=== PATIENT | female | born 1975 | race Asian ===

== ENCOUNTER 2019-10-31 10:34 | Outpatient (CLI) | payer OTHER ==
--- NOTE | 2019-10-31 13:05 | SLEEP CARE CONSULTATION ---
Information from patient questionnaire entered by Leann Leblanc. I have reviewed and concur with the information entered by Leann Leblanc. This document represents the service I personally performed and the decisions made by me, Darya Quan MD, [facility]. History of Present Illness Service Date and Time: 10/31/2019 1034 Reason for Visit: New patient Chief Complaint: reports: Snoring, Fatigue, Frequent awakenings at night Date of Onset: 1+ years Usual bedtime: 2300 Time it takes to fall asleep: 10 minutes Snores at night: Yes Observed to quit breathing while asleep: Yes Sleeps alone due to snoring: No Number of times waking at night: 2-3 Reasons for waking at night: reports: Snoring, Bathroom Toss, Turn, or Twitch while sleeping: Yes Recalls having dreams: Yes Usually gets out of bed at: [id number] Feels refreshed in the morning: No Morning headache: No Sleepy or fatigued during the day: Yes Ever fallen asleep while driving: No Takes day naps: Yes Dreams during day naps: No Prior sleep studies: No Additional HPI information: I had the pleasure of seeing Ms. Cuevas today regarding the possibility of her having a sleep disorder. As you know, she is a 44 year old lady who complains of loud snore, frequent awakenings, and persistent fatigue for over a year. She had a sleep study in 2016 in [place] that was negative but she said she slept very little. The patient tells me that she normally goes to bed around 11 pm, and it takes her approximately 10 minutes to fall asleep. She has been told that she snores loudly and irregularly at night. She has never been observed to stop breathing in her sleep. Her spouse sleeps in the same bed. He wears a CPAP. She can recall waking up on the average of 2 - 3 times during the night. Most of the time she wakes up because of having to use the bathroom. She has awakened occasionally because of her own snoring, choking, and having to gasp for air. There is a lot of tossing and turning in her sleep. No somniloquy (sleep talking) or somnambulism (sleep walking). Generally she can recall having dreams. In the morning she usually gets up out of the bed around 6 - 7 a.m. not feeling refreshed nor rested. She usually does not have a morning headache. During the day she complains of feeling sleepy and fatigued. Her score on [place] Sleepiness Scale is 10 out of 24. She has never fallen asleep while driving nor has had any accident due to sleepiness. She usually takes naps during the day. Upon falling asleep during the day she denies having vivid dreams. She has never had sleep paralysis, experienced cataplexy or symptoms of restless leg syndrome. She denies having impaired concentration during the day. Subjective Initial [place] Sleepiness Scale score: 10 (in 2020) Past Medical History Past Medical History: reports: Arthritis, Insulin resistance, GERD Social History The patient's occupation is a [employer]. Patient is and lives in [place]. Have you smoked in the past 12 months: No Alcohol use: No Caffeine use: No Allergies and Home Medications Drug allergies reviewed: Yes Home medication list reviewed: Yes Review of Systems Weight gain over past 5 years: 20 Cardiovascular: reports: palpitations Respiratory: denies: shortness of breath, wheeze, sputum production, chronic cough, other Gastrointestinal: reports: heartburn Urinary: reports: frequency Neurological: denies: headaches, seizure, head trauma, disorientation, speech dysfunction, gait or balance problems, fainting or unconsciousness, other Psychiatric: denies: Attention Deficit Hyperactivity, anxiety, depression, mood disorder, claustrophobia, other Ear/Nose/Throat: reports: nasal congestion, dry mouth/throat, hoarseness Endocrine: denies: thyroid disease, history of goiter, sluggishness, too hot or cold, excessive thirst, increased appetite, increased urination, unexplained weakness, other Musculoskeletal: reports: joint pain Physical Exam Vital signs obtained and entered by: To minimize unnecessary CVOVID-19 exposure, physical exam was deferred Height: 5 ft Weight: 156 lb Body Mass Index: 30.4 BMI Classification: Obese Impression and Plan IMPRESSION: 1. Obstructive Sleep Apnea-Hypopnea Syndrome, as suggested by history of loud and irregular snoring, nocturnal choking, unrefreshed sleep, and daytime hypersomnolence. Narrow oropharynx and obesity are common predisposing factors for obstructive sleep apnea-hypopnea syndrome. Pathophysiology of sleep- disordered breathing was discussed. I recommend proceeding to polysomnography to confirm the diagnosis and to assess severity. If she has significant sleep disordered breathing, a manual CPAP titration study will also be performed to find the optimal treatment pressure. I informed the patient of what the sleep studies involve and after some discussion, she agreed to proceed. Plan: 1. Schedule an in-laboratory polysomnography + manual CPAP titration study. 2. Avoid long distance driving or when feeling sleepy. 3. Avoid alcohol, sedative and muscle relaxant around bedtime. 4. Attempt to lose weight. 5. Return in 1 to 2 weeks after the study to discuss results and initiate therapy. Visit Type: In Office Time Spent with Patient (minutes): 15 Provider Statement: I spent 100% of the Face to Face Visit with the patient with greater than 50% spent counseling the patient and coordination of care.
== END 2019-10-31 10:35 | disposition home or self-care (01) ==
LOC: SC 10:34
PROVIDERS: ATTEND Internal Medicine Pulmonary Disease
DX: R06.83 Snoring (principal); G47.8 Other sleep disorders; G47.10 Hypersomnia, unspecified; E66.3 Overweight
CPT/HCPCS: 99203; 99212

== ENCOUNTER 2019-12-01 19:28 | Outpatient (CLI) | payer OTHER | END 2019-12-01 19:29 | disposition home or self-care (01) | LOC: SC 19:28 | PROVIDERS: ATTEND Internal Medicine Pulmonary Disease | DX: G47.33 Obstructive sleep apnea (adult) (pediatric) (principal); E66.3 Overweight; Z68.30 Body mass index [BMI] 30.0-30.9, adult | CPT/HCPCS: 95810 ==

== ENCOUNTER 2019-12-12 15:10 | Outpatient (CLI) | payer OTHER ==
--- NOTE | 2019-12-12 16:16 | SLEEP CARE CONSULTATION ---
Information from patient questionnaire entered by Alisa Crawley. I have reviewed and concur with the information entered by Alisa Crawley. This document represents the service I personally performed and the decisions made by me, Darya Quan MD, [facility]. History of Present Illness Service Date and Time: 12/12/2019 1510 Initial [place] Sleepiness Scale score: 10 (in 2019) Current [place] Sleepiness Scale score: 3 Additional HPI information: HPI: Ms. Cuevas returns for follow up of the sleep study she had on 12/01/2019. 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 Except for mild sleep fragmentation, the sleep architecture was normal. Respiratory monitoring showed moderate obstructive sleep apnea-hypopnea (AHI = 16.2) associated with frequent arousals, oxyhemoglobin desaturation and mild hypoxia (george oxygen saturation of 86%). The respiratory events occurred mainly during supine sleep (supine AHI = 20.8; non-supine = 11.89). Snore was loud in intensity. There was no significant periodic leg movement of sleep. Cardiac rhythm was normal sinus rhythm without significant arrhythmia. No abnormal behavior (parasomnia) observed during the night. The patient was informed of these findings. I explained to her the pathophysiology behind obstructive sleep apnea. We then spent quite a bit of time discussing different treatment options. For mild obstructive sleep apnea, surgery and oral appliance are alternatives to nasal CPAP therapy but in moderate or severe cases, nasal CPAP is the most effective and reliable treatment. After some discussion, she opted to go with the nasal CPAP therapy. I explained to her how CPAP machine works and what to expect when using the machine. She is quite familiar with the treatment because her uses a CPAP. Sleep Study - Results Type of Sleep Study: Polysomnography Prior sleep studies: No Allergies and Home Medications Drug allergies reviewed: Yes Home medication list reviewed: Yes Review of Systems Review of systems same as previous: Yes Physical Exam Vital signs obtained and entered by: To minimize the risk of COVID-19 exposure, detailed exam was not performed. Height: 5 ft Weight: 156 lb Body Mass Index: 30.4 BMI Classification: Obese Impression and Plan IMPRESSION: 1. Obstructive Sleep Apnea-Hypopnea Syndrome, moderate, associated with mild hypoxemia and sleep fragmentation. Most likely, this is the cause of the patients symptoms of unrefreshed sleep, and excessive daytime sleepiness. As mentioned above, the patient will return for a manual CPAP/BiPAP titration study. PLAN: 1. Schedule a manual CPAP/BiPAP titration study. 2. Attempt to lose weight. 3. Return for follow up after the titration study. Visit Type: In Office Time Spent with Patient (minutes): 15 Provider Statement: I spent 100% of the Face to Face Visit with the patient with greater than 50% spent counseling the patient and coordination of care.
== END 2019-12-12 15:11 | disposition home or self-care (01) ==
LOC: SC 15:10
PROVIDERS: ATTEND Internal Medicine Pulmonary Disease
DX: G47.33 Obstructive sleep apnea (adult) (pediatric) (principal); E66.9 Obesity, unspecified; Z68.30 Body mass index [BMI] 30.0-30.9, adult
CPT/HCPCS: 99212; 99213